=== PATIENT | male | born 1960 | race Caucasian/White ===

== ENCOUNTER → 2017-07-12 | Outpatient (CLI) | payer OTHER | LOC: FIMAGING 10:02 | PROVIDERS: ATTEND Internal Medicine | DX: Z03.89 Encounter for observation for other suspected diseases and conditions ruled out (principal) | CPT/HCPCS: G0204 ==

== ENCOUNTER 2018-06-01 10:34 | Emergency (ER) | payer OTHER ==
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
[2018-06-11 09:39] VITALS: BP 145/87
== END 2018-06-01 13:27 | disposition home or self-care (01) ==
PROC: 0HQ7XZZ Repair Abdomen Skin, External Approach (ICD-10-PCS; principal; 2018-06-01)
DX: S31.119A Laceration without foreign body of abdominal wall, unspecified quadrant without penetration into peritoneal cavity, initial encounter (principal); V97.32XA Injured by rotating propeller, initial encounter; Y92.520 Airport as the place of occurrence of the external cause; E78.5 Hyperlipidemia, unspecified; I10 Essential (primary) hypertension